=== PATIENT | female | born 1995 | race Hispanic/Latino ===

== ENCOUNTER 2022-05-15 09:27 | Outpatient (CLI) | payer OTHER | END 2022-05-15 09:28 | disposition home or self-care (01) | LOC: CSHLAB 09:27 | PROVIDERS: ATTEND Family Medicine | DX: Z20.822 Contact with and (suspected) exposure to COVID-19 (principal) | CPT/HCPCS: 87811 ==

== ENCOUNTER 2022-05-17 19:00 | Inpatient (IN) | payer MEDICAID, OTHER ==
[2022-05-18 02:53] VITALS: BMI 52.9
[2022-05-18] MEDS ORDERED: Ondansetron PF 4 MG/2 ML Vial IVP PRN ×3 (03:10→14:36)
[2022-05-18] MEDS ORDERED: Docusate 100 MG CAP PO PRN (03:10)
[2022-05-18] MEDS ORDERED: Misoprostol 200 MCG TAB PR PRN (03:10)
[2022-05-18] MEDS ORDERED: Lidocaine 1% (PF) 30 ML VIAL SC PRN (03:10)
[2022-05-18] MEDS ORDERED: Carboprost 250 MCG/ML AMP IM PRN (03:10)
[2022-05-18] MEDS ORDERED: Ibuprofen 800 MG TAB PO PRN (03:10)
[2022-05-18] MEDS ORDERED: Methylergonovine 0.2 MG/ML VIAL IM PRN (03:10)
[2022-05-18] MEDS ORDERED: Acetaminophen 500 MG TAB PO PRN (03:10)
[2022-05-18] MEDS ORDERED: Promethazine HCl 25 MG/ML VIAL IM PRN ×2 (03:10→05:36)
[2022-05-18] MEDS ORDERED: Fentanyl 100 MCG/2 ML VIAL SLOW IVP PRN (03:10)
[2022-05-18] MEDS ORDERED: hydrALAZINE 20 MG/ML VIAL SLOW IVP PRN (03:10)
[2022-05-18] MEDS ORDERED: Misoprostol 100 MCG TAB VAG SCH ×2 (03:15→06:00)
[2022-05-18] MEDS ORDERED: NS w/ Oxytocin 30 units 500 ML IV SCH ×2 (03:15)
[2022-05-18] MEDS ORDERED: Lactated Ringer's 1,000 ML IV SCH (03:15)
[2022-05-18 03:42] LABS: Hemoglobin 10.3 g/dL (12.0-15.5); Mean Corpuscular Hemoglobin 28.4 pg (27.0-33.0); Mean Corpuscular Volume 83.5 fl (81.6-98.3); Mean Platelet Volume 10.7 fl (7.4-10.4); Platelet Count 226 10x3/uL (150-450); RBC Distribution Width 15.4 % (11.5-14.5); Red Blood Cell (RBC) Count 3.63 10x6/uL (3.90-5.03); White Blood Cell (WBC) Count 7.4 10x3/uL (3.5-10.5)
[2022-05-18 04:15] LABS: HBSAg Index 0.24 S/CO (0-0.99); Hep B Surf Ag Non-Reactive S/CO (NonReactive)
[2022-05-18 04:15] LABS: Syphilis Antibody Nonreactive (Nonreactive); Syphilis Antibody Index 0.04 S/CO (<1.00 Non-Reactive)
[2022-05-18] MEDS ORDERED: Fentanyl 2 mcg/Bup 0.1% Cadd 100 ML ONE (05:33)
[2022-05-18] MEDS ORDERED: diphenhydrAMINE 50 MG/ML VIAL IVP PRN (05:36)
[2022-05-18] MEDS ORDERED: Moisturizing Cream (Eucerin) 113 GM JAR TOP PRN (05:36)
[2022-05-18] MEDS ORDERED: ePHEDrine Sulfate 50 MG/10 ML VIAL SLOW IVP PRN (05:36)
[2022-05-18] MEDS ORDERED: Naloxone HCl 0.4 mg/ml Vial IVP PRN ×2 (05:36)
[2022-05-18] MEDS ORDERED: Lactated Ringer's 500 ML IV PRN (05:36)
[2022-05-18] MEDS ORDERED: Communication Order-Pharmacy FS SCH (05:45)
[2022-05-18] MEDS: Fentanyl 2 mcg/Bupivacaine 0.1% Cassette 100 ML EPIDURAL SCH ×2 (06:15→11:00)
[2022-05-18] MEDS ORDERED: Boostrix 0.5 ML (Tdap) VIAL (>/=7 yrs of age) IM ONE (14:36)
[2022-05-18] MEDS ORDERED: Bisacodyl 10 MG SUPP PR PRN (14:36)
[2022-05-18] MEDS ORDERED: Milk Of Magnesia 30 ML UDCUP PO PRN (14:36)
[2022-05-18] MEDS ORDERED: Bupivacaine 0.25% HCL 30 ML VIAL ONE (18:08)
[2022-05-18] MEDS: Docusate 100 MG CAP PO SCH (21:14)
[2022-05-18] MEDS: Ibuprofen 800 MG TAB PO SCH (21:14)
[2022-05-18] MEDS: Ferrous Sulfate 325 MG TAB PO SCH (21:28)
[2022-05-18] MEDS: Acetaminophen 325 MG TAB PO PRN (23:41)
[2022-05-19] MEDS: Acetaminophen 325 MG TAB PO PRN ×2 (03:44→08:21)
[2022-05-19] MEDS: Ibuprofen 800 MG TAB PO SCH ×2 (06:06→13:55)
[2022-05-19] MEDS: Docusate 100 MG CAP PO SCH (08:21)
[2022-05-19] MEDS: Ferrous Sulfate 325 MG TAB PO SCH (08:22)
[2022-05-19 16:44] VITALS: BP 97/55; TEMP 98.3
== END 2022-05-19 16:45 | disposition home or self-care (01) | DRG 807 ==
LOC: CSHLD 05-18 02:21 → CSHPP 05-18 17:00
PROVIDERS: ADMIT Family Medicine; ATTEND Family Medicine
PROC: 10E0XZZ Delivery of Products of Conception, External Approach (ICD-10-PCS; principal; 2022-05-18)
PROC: 3E033VJ Introduction of Other Hormone into Peripheral Vein, Percutaneous Approach (ICD-10-PCS; 2022-05-18)
PROC: 10907ZC Drainage of Amniotic Fluid, Therapeutic from Products of Conception, Via Natural or Artificial Opening (ICD-10-PCS; 2022-05-18)
PROC: 10H07YZ Insertion of Other Device into Products of Conception, Via Natural or Artificial Opening (ICD-10-PCS; 2022-05-18)
DX: O24.420 Gestational diabetes mellitus in childbirth, diet controlled (principal); Z37.0 Single live birth; Z3A.39 39 weeks gestation of pregnancy; D64.9 Anemia, unspecified; O99.02 Anemia complicating childbirth; O13.4 Gestational [pregnancy-induced] hypertension without significant proteinuria, complicating childbirth; E66.9 Obesity, unspecified; O99.214 Obesity complicating childbirth; Z79.82 Long term (current) use of aspirin
CPT/HCPCS: 36415; 36416; 85027; 86780; 86850; 86900; 86901; 87340; J2405; J2590; J7120; S0020